=== PATIENT | female | born 1985 | race Caucasian/White ===

== ENCOUNTER 2017-09-17 18:59 | Emergency (ER) | payer OTHER ==
[~2017-09-17] VITALS: Ht 162.6 cm; Wt 72.6 kg
[2017-09-17 19:01] VITALS: BP 116/73
--- NOTE | 2017-09-17 19:01 | NUR ---
Patient ambulated to bed 6 with family. RN evaluating patient at bedside.
--- NOTE | 2017-09-17 19:05 | NUR ---
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 PT HAS BRUISING AND 2 LACERATIONS TO R FOREARM. PT DENIES N/V/D; SKIN IS INTACT, PINK/WARM/DRY; AAOX4, PERRL, WITH EVEN AND STEADY GAIT; LUNGS CLEAR BL, BREATHING UNLABORED; HR EVEN AND REGULAR, BL PERIPHERAL PULSES PRESENT; BS ACTIVE X4, NO TENDERNESS TO PALPATION, NO HEPATOSPLENOMEGALLY PALPATED, RESONANT TO PERCUSSION; PT DENIES ANY FEVER, CP, SOB, OR COUGH AT THIS TIME; PT STATES 10/10 PAIN AT THIS TIME; VSS; PATIENT POSITIONED FOR COMFORT; HOB ELEVATED; BEDRAILS UP X2; BED DOWN.
--- NOTE | 2017-09-17 19:06 | NUR ---
REPORT GIVEN TO BERTHA HERNANDEZ
[2017-09-17] MEDS ORDERED: LIDOCAINE 2% 1000 MG/50 ML VIAL INJ ONE (19:45)
[2017-09-17] MEDS ORDERED: KETOROLAC 60 MG/2 ML VIAL IM ONE (19:45)
[2017-09-17] MEDS ORDERED: BACITRACIN OINT 500 UNITS/GM PKT TP ONE (19:45)
--- NOTE | 2017-09-17 20:28 | NUR ---
PT IN ROOM ON [facility] IN [facility], NO IDENTIFIED REQUESTS AT THIS TIME.
[2017-09-17 21:07] VITALS: BP 120/78
== END 2017-09-17 21:07 | disposition home or self-care (01) ==
LOC: MED 18:59
DX: S41.111A Laceration without foreign body of right upper arm, initial encounter (principal); J45.909 Unspecified asthma, uncomplicated; Z88.1 Allergy status to other antibiotic agents; Z90.89 Acquired absence of other organs; W54.0XXA Bitten by dog, initial encounter; Y93.89 Activity, other specified; Y92.89 Other specified places as the place of occurrence of the external cause; Y99.8 Other external cause status
CPT/HCPCS: 12001; 73110; 90471; 90715; 96372; 99284; J1885; J2001; Q0092